=== PATIENT | female | born 1995 | race Two or more races ===

== ENCOUNTER 2025-02-15 19:42 | Emergency (ER) | payer OTHER ==
[~2025-02-15] VITALS: Ht 154.9 cm; Wt 59.9 kg
[2025-02-15] MEDS ORDERED: 0.9 % SODIUM CHLORIDE 1,000 ML IV ONE (21:00)
[2025-02-15] MEDS ORDERED: ONDANSETRON HCL 2 MG/ML VIAL IV ONE (21:00)
[2025-02-15] MEDS ORDERED: KETOROLAC TROMETHAMINE 30 MG VIAL IU ONE (21:00)
[2025-02-15] MEDS ORDERED: ONDANSETRON HCL 2 MG/ML VIAL ONE (21:37)
[2025-02-15] MEDS ORDERED: KETOROLAC TROMETHAMINE 30 MG VIAL ONE (21:37)
[2025-02-15] MEDS ORDERED: FAMOTIDINE/PF 20 MG/2 ML VIAL ONE (21:38)
[2025-02-15 22:09] LABS: BASO % 0.3 % (0.1-1.2); EOS # 0.03 (0.04-0.54); EOS % 0.4 % (0.7-7.0); LYMPH # 0.44 (1.18-3.74); LYMPH % 5.8 % (19.3-53.1); MEAN PLATELET VOLUME 10.80 fl (9.4-12.4); MONO # 0.20 (0.24-0.82); MONO % 2.6 % (4.7-12.5); NEUT # 6.92 (1.56-6.13); NEUT % 90.6 % (34.0-71.1); RED CELL DISTRIBUTION WIDTH 12.8 % (11.6-14.4)
[2025-02-15 22:46] LABS: ALT/SGPT 42 U/L (12-78); AST/SGOT 17 U/L (15-37); BILIRUBIN TOTAL 0.57 mg/dL (0.3-1.2); BUN CREA RATIO 42 (7.0-25.0); CREATININE SERUM 0.43 mg/dL (0.55-1.02); GFR 171.26; GLOBULINA 3.9 G/DL (2.4-3.5); GLUCOSE FASTING 107 mg/dL (65-100); OSMOLALITY SERUM 284 MOSM/KG (275-295)
[2025-02-16 01:18] LABS: URINE APPEARANCE Cloudy; URINE BILIRRUBIN Negative (NEGATIVE); URINE BLOOD Trace; URINE COLOR Dark Yellow; URINE GLUCOSE Negative (NEGATIVE); URINE LEUKOCYTE Small; URINE NITRATE Negative; URINE PROTEIN 30 (NEGATIVE); URINE UROBILINOGEN 0.2 E.U./dl
[2025-02-16 01:23] LABS: URINE BACTERIA 4577.7 uL (0.0-1933); URINE EPITHELIAL CELLS 44.6 uL (0.0-38.8); URINE RBC 93.2 uL (0.0-20.8); URINE WBC 172.4 uL (0.0-23.2)
[2025-02-16] MEDS ORDERED: INTESTINEX680 M2 PO (02:13)
[2025-02-16] MEDS ORDERED: PEPCID AC20 MG PO (02:13)
[2025-02-16 03:07] LABS: URINE CAST 0.87 uL (0.0-1.40); URINE KETONE 80 (NEGATIVE)
== END 2025-02-16 03:49 | disposition home or self-care (01) ==
LOC: ER 19:43
PROVIDERS: Behavior Technician
DX: K52.9 Noninfective gastroenteritis and colitis, unspecified (principal); R11.10 Vomiting, unspecified; R10.9 Unspecified abdominal pain; R11.2 Nausea with vomiting, unspecified; E11.9 Type 2 diabetes mellitus without complications
CPT/HCPCS: 36415; 74177; Q9965